=== PATIENT | female | born 1955 | race Caucasian/White ===

== ENCOUNTER 2020-07-27 14:18 | Outpatient (REF) | payer MEDICARE, OTHER, SELFPAY ==
[2020-07-27 19:24] LABS: Abs Immature Grans 0.02 10^3/uL (0.0-0.06); Absolute Basophil Count 0.03 10^3/uL (0.0-0.2); Absolute Eosinophil Count 0.17 10^3/uL (0.0-0.7); Absolute Lymphocyte Count 2.25 10^3/uL (1.2-3.4); Absolute Monocyte Count 0.42 10^3/uL (0.1-0.8); Basophils % 0.5; Eosinophils % 2.6; HCT 48.9 % (36.0-46.0); HGB 16.1 g/dL (11.2-15.7); Immature Grans % 0.3; Lymphocytes % 34.1; MCH 29.7 pg (27.0-33.0); MCHC 32.9 % (32.0-36.0); MCV 90.1 fL (80-95); MPV 10.8 fL (8.0-11.0); Monocytes % 6.4; Neutrophils % 56.1; Nucleated RBC 0 %; Platelet Count 268 10^3/uL (130-400); RBC 5.43 10^6/uL (3.93-5.22); RDW 12.5 % (11.7-14.6); RDW-SD 41.1 fL; WBC 6.59 10^3/uL (4.4-10.8)
[2020-07-27 19:37] LABS: ALT 24 U/L (14-59); AST 17 U/L (15-37); Albumin 3.9 g/dL (3.4-5.0); Alkaline Phosphatase 52 U/L (46-116); Anion Gap 9.8 mmol/L (3-11); BUN 23 mg/dL (7-18); Bilirubin, Total 0.5 mg/dL (0.2-1.0); CO2 26.2 mmol/L (21.0-32.0); CREATININE 0.78 mg/dL (0.55-1.02); Calcium 8.9 mg/dL (8.5-10.1); Calculated LDL 181 mg/dL (<100); Chloride 104 mmol/L (98-107); Cholesterol 257 mg/dL (<200); Glucose 113 mg/dL (74-106); HDL Cholesterol 47 mg/dL (40-60); Potassium 4.3 mmol/L (3.5-5.1); Sodium 140 mmol/L (136-145); Total Protein 7.2 g/dL (6.4-8.2); Triglyceride 149 mg/dL (<150)
[2020-07-27 19:50] LABS: Vitamin D 25 Total 25.5 ng/ml (30-100)
== END 2020-07-27 14:38 ==
LOC: NCHCN 14:18
PROVIDERS: PCP Physician Assistant; Visit Provider Physician Assistant
DX: M81.0 Age-related osteoporosis without current pathological fracture (principal); G47.30 Sleep apnea, unspecified; E78.89 Other lipoprotein metabolism disorders; K57.90 Diverticulosis of intestine, part unspecified, without perforation or abscess without bleeding; K21.9 Gastro-esophageal reflux disease without esophagitis; M19.90 Unspecified osteoarthritis, unspecified site; J30.2 Other seasonal allergic rhinitis
CPT/HCPCS: 80053; 80061; 82306; 84443; 85025

== ENCOUNTER 2021-08-04 13:37 | Outpatient (REF) | payer MEDICARE, OTHER, SELFPAY ==
[2021-08-06 16:27] LABS: COVID-19 RT-PCR UVMMC Result Negative (Negative)
== END 2021-08-04 13:38 | disposition home or self-care (01) ==
LOC: NCHCN 13:37
PROVIDERS: PCP Physician Assistant; Visit Provider Physician Assistant
DX: Z20.822 Contact with and (suspected) exposure to COVID-19 (principal); R05.8 Other specified cough
CPT/HCPCS: U0003

== ENCOUNTER 2021-12-03 21:33 | Outpatient (REF) | payer MEDICARE, SELFPAY ==
[2021-12-05 11:33] LABS: COVID-19 RT-PCR UVMMC Result Negative (Negative)
== END 2021-12-03 21:34 | disposition home or self-care (01) ==
LOC: NCHCN 21:33
PROVIDERS: PCP Physician Assistant; Visit Provider Internal Medicine
DX: Z20.822 Contact with and (suspected) exposure to COVID-19 (principal); R05.8 Other specified cough
CPT/HCPCS: U0003; U0005

== ENCOUNTER 2023-05-10 16:17 | Outpatient (CLI) | payer MEDICARE, OTHER, SELFPAY ==
--- NOTE | 2023-05-10 06:00 | DI.RAD_ITS ---
Exam(s) XR PAIN CLINIC SACRIOILIAC 2V EXAM: XR PAIN CLINIC SACRIOILIAC 2V CLINICAL HISTORY: Dx: Sacroiliac Joint Dysfunction TECHNIQUE: 2D and realtime digital imaging was performed. CONTRAST MATERIAL: Refer to procedure report. COMPARISON: No exams were available for comparison FINDINGS: Fluoroscopy was provided for Dr. Arriola during the performance of a left sacroiliac joint injection. Please refer to the procedure report for complete details. Ka,r=6.48 mGy IMPRESSION:
[2023-05-10 16:48] VITALS: BP 151/78; PULSE 98; RESP 20; TEMP 36.7; O2SAT 98
--- NOTE | 2023-05-10 17:14 | PDOC.PAIN_ITS ---
Date of service: 05/10/23 Time of Service: 17:14 Pain Managment Procedure Note Procedure Note Procedure Note: PROCEDURE NOTE BILATERAL INTRA-ARTICULAR SACROILIAC JOINT INJECTION Date of Service: May 10, 2023 Patient: Julissa Milan Provider: Ronaldo Arriola DO, MPH COMMENTS: I previously evaluated the patient in the office and their symptoms in relation to the sacroiliac joint pain have remained the same. Pre-operative diagnosis: Sacroiliac joint dysfunction Post-operative diagnosis: Same Pre-procedure pain: VAS= 3/10 with sitting and 7/10 with activity Julissa Milan has been [facility] to [facility] for a Bilateral intra-articular Sacroiliac joint injection. Julissa was interviewed and the medical record reviewed. There were no medical, pharmacologic, radiographic or other structural contraindications to attempting a fluoroscopically-guided, contrast-enhanced, intra-articular Sacroiliac joint injection. The risks, benefits, and potential side effects of this procedure were reviewed with the patient. Questions and concerns were addressed. After it was clear that Julissa was fully informed about the procedure, the printed consent form was signed by the patient and myself. Julissa was placed in the prone position on the fluoroscopy table and an automated blood pressure cuff, 3 lead EKG, and pulse oximeter were applied. The skin entry point for approaching the Left sacroiliac joint was identified under the most advantageous fluoroscopic view and marked. Following thorough Chlorhexadine preparation of the skin and draping with sterile surgical drapes, 2 mls of 1% lidocaine was infiltrated into the skin at the entry point and the surrounding subcutaneous tissues. Next, a 3.5 22G spinal needle was placed under fluoro scopic guidance into the Left sacroiliac joint. Intra-articular placement was confirmed by a clear arthrogram resulting from the injection of 0.25ml of Omnipaque-240. Next, 1 ml of Depo- Medrol 40 mg/ml was injected intra- articularly with an initial reproduction of a significant component of the usual pain. This was followed with 1 ml of 1% Lidocaine. The needle was then removed without difficulty. (49 ml of Omnipaque-240 was wasted). The exact procedure was completed on the opposite sacroiliac joint. Julissa's vital signs were stable throughout the procedure and were as recorded in nursing records. Follow up plans and appointments were discussed with Julissa. Post procedure instructions were given as documented in nursing records. Having met discharge criteria, Jul[facility] was [facility] from the [facility] COMMENTS: Post-procedure pain: VAS= 0/10. If the patient receives at least 50% improvement in pain and/or function for at least 3 months, this procedure can be repeated if needed. I personally performed this entire procedure. RONALDO ARRIOLA DO, MPH ABPMR-subspecialty board certification in Pain Medicine [facility] [facility]
[2023-05-10 17:22] VITALS: BP 149/89; PULSE 91; RESP 17; O2SAT 96
[2023-05-10] MEDS: methylPREDNISolone ACETATE 80 MG/ML VIAL IJ (17:24)
[2023-05-10] MEDS: Omnipaque 240 MG/ML 50 ML BTL IJ (17:24)
== END 2023-05-10 16:18 | disposition home or self-care (01) ==
LOC: PC 16:17
PROVIDERS: PCP Physician Assistant; Visit Provider Preventive Medicine Occupational Medicine
DX: M54.50 Low back pain, unspecified (principal); M46.1 Sacroiliitis, not elsewhere classified
CPT/HCPCS: 27096; 72200; J1040; Q9967

== ENCOUNTER 2023-10-26 11:55 | Outpatient (CLI) | payer MEDICARE, OTHER, SELFPAY ==
--- NOTE | 2023-10-26 06:00 | DI.RAD_ITS ---
Exam(s) XR PAIN CLINIC SACRIOILIAC 2V EXAM: XR PAIN CLINIC SACRIOILIAC 2V CLINICAL HISTORY: DX: Sacroiliac dysfunction TECHNIQUE: 2D and realtime digital imaging was performed. CONTRAST MATERIAL: Refer to procedure report. COMPARISON: No exams were available for comparison FINDINGS: Fluoroscopy was provided for Dr. Arriola during the performance of a bilateral sacroiliac joint injecti ons. Please refer to the procedure report for complete details. Ka,r=7.03 mGy IMPRESSION: RADIATION DOSE DELIVERED: 0.0 0.0 0
[2023-10-26 12:07] VITALS: BP 135/75; PULSE 85; RESP 20; TEMP 36.7; O2SAT 97
--- NOTE | 2023-10-26 12:39 | PDOC.PAIN ---
Date of service: 10/26/23 Time of Service: 12:39 Pain Managment Procedure Note Procedure Note Procedure Note: PROCEDURE NOTE BILATERAL INTRA-ARTICULAR SACROILIAC JOINT INJECTION Date of Service: October 26, 2023 Patient: Julissa Milan Provider: Ronaldo Arriola DO, MPH COMMENTS: I previously evaluated the patient in the office and their symptoms in relation to the sacroiliac joint pain have remained the same. Pre-operative diagnosis: Sacroiliac joint dysfunction Post-operative diagnosis: Same Pre-procedure pain: VAS= 5/10 Julissa Milan has been referred to our [facility] for a Bilateral intra-articular Sacroiliac joint injection. Julissa was interviewed and the medical record reviewed. There were no medical, pharmacologic, radiographic or other structural contraindications to attempting a fluoroscopically-guided, contrast-enhanced, intra-articular Sacroiliac joint injection. The risks, benefits, and potential side effects of this procedure were reviewed with the patient. Questions and concerns were addressed. After it was clear that Julissa was fully informed about the procedure, the printed consent form was signed by the patient and myself. Julissa was placed in the prone position on the fluoroscopy table and an automated blood pressure cuff, 3 lead EKG, and pulse oximeter were applied. The skin entry point for approaching the Left sacroiliac joint was identified under the most advantageous fluoroscopic view and marked. Following thorough Chlorhexadine preparation of the skin and draping with sterile surgical drapes, 2 mls of 1% lidocaine was infiltrated into the skin at the entry point and the surrounding subcutaneous tissues. Next, a 3.5 22G spinal needle was placed under fluoroscopic guidance into the Left sacroiliac joint. Intra-articular placement was confirmed by a clear arthrogram resulting from the injection of 0.25ml of Omnipaque-240. Next, 1 ml of Depo- Medrol 40 mg/ml was injected intra-articularly with an initial reproduction of a significant component of the usual pain. This was followed with 1 ml of 1% Lidocaine. The needle was then removed without difficulty. (49 ml of Omnipaque-240 was wasted). The exact procedure was completed on the opposite sacroiliac joint. Julissa's vital signs were stable throughout the procedure and were as recorded in nursing records. Follow up plans and appointments were discussed with Julissa. Post procedure instructions were given as documented in nursing records. Having met discharge criteria, Julissa was [facility] from the [facility] COMMENTS: Post-procedure pain: VAS= 0/10. If the patient receives at least 50% improvement in pain and/or function for at least 3 months, this procedure can be repeated if needed. I personally performed this entire procedure. RONALDO ARRIOLA DO, MPH ABPMR-subspecialty board certification in Pain Medicine [facility]
[2023-10-26 12:42] VITALS: BP 159/95; PULSE 76; RESP 14; O2SAT 99
[2023-10-26] MEDS: methylPREDNISolone ACETATE 40 MG/ML VIAL IJ (12:44)
[2023-10-26] MEDS: Nerve Block Tray 1 EACH MC (12:44)
[2023-10-26] MEDS: Omnipaque 240 MG/ML 50 ML BTL IJ (12:44)
== END 2023-10-26 11:56 | disposition home or self-care (01) ==
LOC: PC 11:57
PROVIDERS: PCP Physician Assistant; Visit Provider Preventive Medicine Occupational Medicine
DX: M54.50 Low back pain, unspecified (principal); M46.1 Sacroiliitis, not elsewhere classified
CPT/HCPCS: 00123; 27096; 72200; J1030; Q9967

== ENCOUNTER 2024-08-14 13:59 | Outpatient (CLI) | payer MEDICARE, OTHER, SELFPAY ==
[2024-08-14] VITALS (7 sets, daily range): BP systolic 125–177; BP diastolic 69–102; PULSE 78–89; RESP 15–20; TEMP 36.7; O2SAT 96–99
--- NOTE | 2024-08-14 06:00 | DI.RAD_ITS ---
Exam(s) XR PAIN CLINIC SACRIOILIAC 2V EXAM: XR PAIN CLINIC SACRIOILIAC 2V CLINICAL HISTORY: DX: Sacroiliac Dysfunction TECHNIQUE: 2D and realtime digital imaging was performed. CONTRAST MATERIAL: Refer to procedure report. COMPARISON: No exams were available for comparison FINDINGS: Fluoroscopy was provided for Dr. Arriola during the performance of a bilateral sacroiliac joint injecti on. Please refer to the procedure report for complete details. Ka,r=6.17 mGy IMPRESSION: RADIATION DOSE DELIVERED: 0.0 0.0 0
[2024-08-14] MEDS: Nerve Block Tray 1 EACH MC (15:30)
[2024-08-14] MEDS: Omnipaque 240 MG/ML 50 ML BTL IJ (15:30)
[2024-08-14] MEDS: methylPREDNISolone ACETATE 80 MG/ML VIAL IJ (15:31)
--- NOTE | 2024-08-15 14:29 | PDOC.PAIN_ITS ---
Date of service: 08/14/24 Time of Service: 16:00 Pain Managment Procedure Note Procedure Note Procedure Note: PROCEDURE NOTE BILATERAL INTRA-ARTICULAR SACROILIAC JOINT INJECTION Date of Service: August 14, 2024 Patient: Julissa Milan Provider: Ronadlo Arriola DO, MPH COMMENTS: I previously evaluated the patient in the office and their symptoms in relation to the sacroiliac joint pain have remained the same. Pre-operative diagnosis: Sacroiliac joint dysfunction ICD-10 M53.3 Post-operative diagnosis: Same Pre-procedure pain: VAS= 8/10 Julissa Milan has been referred to [facility] for a Bilateral intra-articular Sacroiliac joint injection. Julisas was interviewed and the medical record reviewed. There were no medical, pharmacologic, radiographic or other structural contraindications to attempting a fluoroscopically-guided, contrast-enhanced, intra-articular Sacroiliac joint injection. The risks, benefits, and potential side effects of this procedure were reviewed with the patient. Questions and concerns were addressed. After it was clear that Julissa was fully informed about the procedure, the printed consent form was signed by the patient and myself. Julissa was placed in the prone position on the fluoroscopy table and an automated blood pressure cuff, 3 lead EKG, and pulse oximeter were applied. The skin entry point for approaching the Left sacroiliac joint was identified under the most advantageous fluoroscopic view and marked. Following thorough Chlorhexadine preparation of the skin and draping with sterile surgical drapes, 2 mls of 1% lidocaine was infiltrated into the skin at the entry point and the surrounding subcutaneous tissues. Next, a 3.5 22G spinal needle was placed under fluoroscopic guidance into the Left sacroiliac joint. Intra-articular placement was confirmed by a clear arthrogram resulting from the injection of 0.25ml of Omnipaque-240. Next, 1 ml of Depo- Medrol 40 mg/ml was injected intra- articularly with an initial reproduction of a significant component of the usual pain. This was followed with 1 ml of 1% Lidocaine. The needle was then removed without difficulty. (49 ml of Omnipaque-240 was wasted). The exact procedure was completed on the opposite sacroiliac joint. Julissa's vital signs were stable throughout the procedure and were as recorded in nursing records. Follow up plans and appointments were discussed with Julissa. Post procedure instructions were given as documented in nursing records. Having met discharge criteria, Julissa was [facility] from the [facility] COMMENTS: Post-procedure pain: VAS= 0/10. If the patient receives at least 50% improvement in pain and/or function for at least 3 months, this procedure can be repeated if needed. I personally performed this entire procedure. RONALDO ARRIOLA DO, MPH ABPMR-subspecialty board certification in Pain Medicine [facility] [facility]
== END 2024-08-14 14:00 | disposition home or self-care (01) ==
PROVIDERS: PCP Physician Assistant; Visit Provider Preventive Medicine Occupational Medicine
DX: M54.50 Low back pain, unspecified (principal); M53.3 Sacrococcygeal disorders, not elsewhere classified
CPT/HCPCS: 27096; 72200; J1010; Q9967

== ENCOUNTER 2024-12-11 12:11 | Outpatient (REF) | payer MEDICARE, OTHER, SELFPAY | END 2024-12-11 12:12 | disposition home or self-care (01) | LOC: NCHCN 12:11 | PROVIDERS: PCP Physician Assistant; Visit Provider Physician Assistant | DX: R39.15 Urgency of urination (principal); R82.89 Other abnormal findings on cytological and histological examination of urine | CPT/HCPCS: 87086 ==

== ENCOUNTER 2025-05-22 19:56 | Outpatient (REF) | payer MEDICARE, OTHER, SELFPAY ==
[2025-05-22 19:18] LABS: Abs Immature Grans 0.03 10^3/uL (0.0-0.06); HCT 44.3 % (36.0-46.0); HGB 15.0 g/dL (11.2-15.7); Immature Grans % 0.4 %; MCH 31.1 pg (27.0-33.0); MCHC 33.9 % (32.0-36.0); MCV 92 fL (80-95); MPV 10.0 fL (8.0-11.0); Platelet Count 367 10^3/uL (130-400); RBC 4.82 10^6/uL (3.93-5.22); RDW 12.6 % (11.7-14.6); RDW-SD 42.2 fL; WBC 7.92 10^3/uL (4.4-10.8)
[2025-05-22 19:36] LABS: ALT 32 U/L (14-59); AST 24 U/L (15-37); Albumin 3.5 g/dL (3.4-5.0); Alkaline Phosphatase 63 U/L (46-116); Anion Gap 6.6 mmol/L (3-11); BUN 18 mg/dL (7-18); Bilirubin, Total 0.3 mg/dL (0.2-1.0); CO2 30.4 mmol/L (21.0-32.0); Calcium 9.2 mg/dL (8.5-10.1); Chloride 104 mmol/L (98-107); Estimated GFR 78.24 (mL/min/1.73m2); Glucose 90 mg/dL (74-106); Magnesium 2.2 mg/dL (1.8-2.4); Potassium 4.4 mmol/L (3.5-5.1); Sodium 141 mmol/L (136-145); TSH (W/Ref FT4) 1.11 uIU/mL (0.36-3.74); Total Protein 7.3 g/dL (6.4-8.2)
== END 2025-05-22 19:57 | disposition home or self-care (01) ==
LOC: NCHCN 19:56
PROVIDERS: PCP Physician Assistant; Visit Provider Physician Assistant
DX: I47.10 Supraventricular tachycardia, unspecified (principal)
CPT/HCPCS: 80053; 83735; 84443; 85025

== ENCOUNTER 2025-06-19 09:16 | Outpatient (CLI) | payer MEDICARE, OTHER, SELFPAY ==
[2025-06-19 09:26] VITALS: BP 141/91; PULSE 63; RESP 20; TEMP 37; O2SAT 98
[2025-06-19 09:57] VITALS: PULSE 67; RESP 16; O2SAT 98
[2025-06-19 09:58] VITALS: BP 190/88; PULSE 63; PULSE 66; RESP 14; O2SAT 98
[2025-06-19 10:00] VITALS: PULSE 67; PULSE 68; RESP 15; O2SAT 99
[2025-06-19 10:01] VITALS: BP 187/100; PULSE 67; PULSE 69; RESP 15; O2SAT 98
[2025-06-19 10:12] VITALS: BP 133/90; PULSE 64
--- NOTE | 2025-06-19 10:13 | DI.RAD_ITS ---
Exam(s) XR PAIN CLINIC SACRIOILIAC 2V EXAM: XR PAIN CLINIC SACRIOILIAC 2V CLINICAL HISTORY: DX: Sacroiliac Dysfunction. TECHNIQUE: Fluoroscopy was provided for the referring physician for guidance with performing pain clinic injection procedure. COMPARISON: No exams were available for comparison FINDINGS: Please see procedure note for details. Fluoro time: 19.4 seconds RADIATION DOSE DELIVERED: Ka,r=5.57 mGy
[2025-06-19] MEDS: methylPREDNISolone ACETATE 40 MG/ML VIAL IJ (10:15)
[2025-06-19] MEDS: Nerve Block Tray 1 EACH MC (10:15)
[2025-06-19] MEDS: Omnipaque 240 MG/ML 50 ML BTL IJ (10:15)
--- NOTE | 2025-06-19 10:33 | PDOC.PAIN_ITS ---
Date of service: 06/19/25 Time of Service: 10:05 Pain Managment Procedure Note Procedure Note Procedure Note: PROCEDURE NOTE BILATERAL INTRA-ARTICULAR SACROILIAC JOINT INJECTION Date of Service: June 19, 2025 Patient: Julissa Milan Provider: Ronaldo Arriola DO, MPH COMMENTS: I previously evaluated the patient in the office and their symptoms in relation to the sacroiliac joint pain have remained the same. She last had this procedure on 08/15/24 and had >50% pain relief for >7 months. Most of her pain has now returned. Pre-operative diagnosis: Sacroiliac joint dysfunction ICD-10 M53.3 Post-operative diagnosis: Same Pre-procedure pain: VAS= 9/10 Julissa Milan has been referred to [facility] for a Bilateral intra-articular Sacroiliac joint injection. Julissa was interviewed and the medical record reviewed. There were no medical, pharmacologic, radiographic or other structural contraindications to attempting a fluoroscopically-guided, contrast-enhanced, intra-articular Sacroiliac joint injection. The risks, benefits, and potential side effects of this procedure were reviewed with the patient. Questions and concerns were addressed. After it was clear that Julissa was fully informed about the procedure, the printed consent form was signed by the patient and myself. Julissa was placed in the prone position on the fluoroscopy table and an automated blood pressure cuff, 3 lead EKG, and pulse oximeter were applied. The skin entry point for approaching the Right sacroiliac joint was identified under the most advantageous fluoroscopic view and marked. Following thorough Chlorhexadine preparation of the skin and draping with sterile surgical drapes, 2 mls of 1% lidocaine was infiltrated into the skin at the entry point and the surrounding subcutaneous tissues. Next, a 3.5 22G spinal needle was placed under fluoroscopic guidance into the Right sacroiliac joint. Intra-articular place ment was confirmed by a clear arthrogram resulting from the injection of 0.25ml of Omnipaque-240. Next, 1 ml of Depo- Medrol 40 mg/ml was injected intra- articularly with an initial reproduction of a significant component of the usual pain. This was followed with 1 ml of 1% Lidocaine. The needle was then removed without difficulty. (49 ml of Omnipaque-240 was wasted). The exact procedure was completed on the opposite sacroiliac joint. Julissa's vital signs were stable throughout the procedure and were as recorded in nursing records. Follow up plans and appointments were discussed with Julissa. Post procedure instructions were given as documented in nursing records. Having met discharge criteria, Julissa was [facility] from the [facility]. COMMENTS: Post-procedure pain: VAS= 0/10. If the patient receives at least 50% improvement in pain and/or function for at least 3 months, this procedure can be repeated if needed. I personally performed this entire procedure. RONALDO ARRIOLA DO, MPH ABPMR-subspecialty board certification in Pain Medicine [facility] Coding Conscious Sedation used for procedure: No CPT Codes: SI Joint Inj; incl Fluoro * BILATERAL* - [id number] ([id number]) Additional Codes: Date of Service () Diagnoses: Sacroiliac joint dysfunction
== END 2025-06-19 09:17 | disposition home or self-care (01) ==
LOC: PC 09:17
PROVIDERS: PCP Physician Assistant; Visit Provider Preventive Medicine Occupational Medicine
DX: M54.50 Low back pain, unspecified (principal); M53.3 Sacrococcygeal disorders, not elsewhere classified
CPT/HCPCS: 27096; 72200; J1010; Q9967